=== PATIENT | male | born 1935 ===

== ENCOUNTER 2019-03-27 20:23 | Inpatient (IN) | payer MEDICARE, OTHER ==
[~2019-03-27] VITALS: Ht 182.9 cm; Wt 104.3 kg
--- NOTE | 2019-03-27 20:23 | NUR ---
PATIENT ARRIVED TO UNIT BY WHEELCHAIR. FAMILY MEMBERS BROUGHT PATIENT FROM ANOTHER FACILITY IN PERSONAL VEHICLE. PATIENT ASSISTED TO ROOM AND ORIENTATED TO STAFF AND SURROUNDINGS. CALL LIGHT IN REACH.
[2019-03-27] MEDS ORDERED: ACETAMINOPHEN500 M1 PO (20:47)
[2019-03-27 22:34] VITALS: BP 101/68; BMI 31.2
--- NOTE | 2019-03-28 01:31 | NUR ---
PATIENT RESTING QUIETLY IN SUPINE POSITION. HOB AT 30 DEGREES. RESPIRATIONS EVEN. NO S/S OF DISTRESS. SR UP X 2. BED IN LOWEST POSITION. ALARM ON AND WORKING PROPERLY. CALL LIGHT IN REACH.
[2019-03-28 07:02] LABS: BASOPHILS 0.2 % (0-2); EOSINOPHILS 5.5 % (0-7); HEMATOCRIT 33.9 % (42.0-54.0); HEMOGLOBIN 11.6 g/dL (13.5-17.5); IMMATURE GRANULOCYTES 0.5 % (0-5); LYMPHOCYTES 21.2 % (15-50); MCH 30.9 pg (26.0-34.0); MCHC 34.2 g/dL (31.0-37.0); MCV 90.4 fL (80.0-100.0); MEAN PLATELET VOLUME 8.9 fL (7.4-10.4); MONOCYTES 9.5 % (2-11); NEUTROPHILS 63.1 % (40-80); PLATELET COUNT 166 10x3/uL (130-400); RBC 3.75 10x6/uL (4.20-6.10); WBC 10.1 10x3/uL (4.8-10.8)
[2019-03-28 07:33] LABS: CALC OSMOLALITY 270 mosm/kg (275-300); CALCIUM 8.7 mg/dL (8.5-10.1); CARBON DIOXIDE 27.7 mmol/L (21.0-32.0); CHLORIDE - SERUM 99 mmol/L (98-107); GLUCOSE 96 mg/dL (74-106); POTASSIUM - SERUM 4.1 mmol/L (3.5-5.1); SODIUM 132 mmol/L (136-145); UREA NITROGEN 30 mg/dL (7-18); eGFR NON AFRICAN AMERICAN 75 mL/min (90-120)
--- NOTE | 2019-03-28 08:00 | NUR ---
PATIENT IS ALERT/ORIENT. CALL LIGHT WITHIN REACH. VOICES NO NEEDS AT THIS TIME. WILL CONTINUE WITH PLAN OF CARE
[2019-03-28 08:46] VITALS: BP 124/67
[2019-03-28 09:34] VITALS: Ht 182.9 cm; Wt 104.3 kg
--- NOTE | 2019-03-28 10:00 | NUR ---
PATIENT IN REHAB ROOM. WORKING WITH PHYSICAL THERAPIST. DENIES ANY PAIN/DISC AT THIS TIME.
--- NOTE | 2019-03-28 12:00 | NUR ---
SITTING UP IN BED.CL IN REACH.
--- NOTE | 2019-03-28 12:59 | NUR ---
PATIENT SITTING UP IN WHEELCHAIR TO EAT LUNCH. REFUSED LUNCH. STATED HE WAS NOT HUNGRY
--- NOTE | 2019-03-28 16:45 | NUR ---
SPEECH THERAPIST IN PATIENTS ROOM. EVALUATING PATIENT
--- NOTE | 2019-03-28 20:09 | NUR ---
PT IN BED WATCHING TV, C/O WETTING BRIEF, PT WAS CLEANED AND CHANGED, NO OTHER NEEDS NOTED, BED IN LOWEST POSITION, FLUIDS AND CALL LIGHT WITHIN REACH
[2019-03-29 08:12] VITALS: BP 118/68
--- NOTE | 2019-03-29 08:14 | NUR ---
PT RESTING IN BED WITH EYES OPEN DCALL LIGHT IN REACH NO PROBLEMS WILL MONITER
--- NOTE | 2019-03-29 08:15 | NUR ---
PT UP IN WHEELCHAIR IN ROOM EATING BREAKFAST CALL LIGHT IN REACH WILL MONITER
--- NOTE | 2019-03-29 16:38 | NUR ---
PT RESTING IN BED WITH EYES OPEN CALL LIGHT IN REACH WILL MONITER
--- NOTE | 2019-03-29 23:36 | NUR ---
PT IN BED LOWEST POSITION, EYES CLOSED AROUSES EASILY TO VOICE, RESPIRATIONS EVEN AND UNLABORED, NO NEEDS NOTED, FLUIDS AND CALL LIGHT WITHIN REACH, PT HAS HAD INCONTINENT EPISODE X'S 2, SO FAR THIS SHIFT
--- NOTE | 2019-03-30 03:11 | NUR ---
PT IN BED LOWEST POSITION, EYES CLOSED AROUSES EASILY TO VOICE, RESPIRATIONS EVEN AND UNLABORED, NO NEEDS NOTED, FLUIDS AND CALL LIGHT WITHIN REACH.
[2019-03-30 06:38] LABS: BASOPHILS 0.4 % (0-2); EOSINOPHILS 5.1 % (0-7); HEMATOCRIT 33.9 % (42.0-54.0); HEMOGLOBIN 11.7 g/dL (13.5-17.5); IMMATURE GRANULOCYTES 0.6 % (0-5); LYMPHOCYTES 24.8 % (15-50); MCHC 34.5 g/dL (31.0-37.0); MCV 89.9 fL (80.0-100.0); MEAN PLATELET VOLUME 8.9 fL (7.4-10.4); MONOCYTES 9.3 % (2-11); NEUTROPHILS 59.8 % (40-80); PLATELET COUNT 163 10x3/uL (130-400); RBC 3.77 10x6/uL (4.20-6.10); WBC 8.4 10x3/uL (4.8-10.8)
[2019-03-30 06:48] VITALS: BP 113/58
[2019-03-30 06:52] LABS: CALC OSMOLALITY 280 mosm/kg (275-300); CALCIUM 8.9 mg/dL (8.5-10.1); CARBON DIOXIDE 27.4 mmol/L (21.0-32.0); CHLORIDE - SERUM 103 mmol/L (98-107); CREATININE - SERUM 0.9 mg/dL (0.6-1.3); GLUCOSE 89 mg/dL (74-106); POTASSIUM - SERUM 3.5 mmol/L (3.5-5.1); SODIUM 137 mmol/L (136-145); UREA NITROGEN 34 mg/dL (7-18); eGFR NON AFRICAN AMERICAN 85 mL/min (90-120)
--- NOTE | 2019-03-30 08:15 | NUR ---
PT UP IN WHEELCHAIR FOR BREAKFAST TOLERATING WELL WILL MONITER
--- NOTE | 2019-03-30 13:49 | NUR ---
PATIENT ADMITTED TO REHAB FROM HOME. HIS PCP IS DR. MCKOY. DISCHARGE PLANS ARE FOR HIM TO RETURN HOME AT [facility]. WILL CONTINUE TO FOLLOW WITH PATIENT.
--- NOTE | 2019-03-30 18:20 | NUR ---
PT RESTING IN BED WATCHING TV CALL LIGHT IN REACH WILL MONITER
--- NOTE | 2019-03-30 21:20 | NUR ---
THE PATIENT WAS LYING IN BED AND WATCHING TELEVISION WHEN STAFF ENTERED HIS ROOM. BED IS IN THE LO WPOSITION WITH SIDERAILS X2 AND CALL LIGHT WITHIN REACH. THE PATIENT DEMONSTRATES APPROPRIATE USE OF A CALL LIGHT. THE PATIENT APPEARS COMFORTABLE WITH NO QUESTIONS OR COCNERNS AT THIS TIME.
[2019-03-30 23:08] VITALS: BP 118/58
[2019-03-31 08:00] VITALS: BP 127/94
--- NOTE | 2019-03-31 08:48 | NUR ---
PATIENT ALERT/ORIENT. SITTING UP IN BED TO EAT BREAKFAST. CALL LIGHT WITHIN REACH. VOICES NO NEEDS. WILL CONTINUE WITH PLAN OF CARE
--- NOTE | 2019-03-31 11:43 | NUR ---
I have reviewed this patient and I concur with the Shift Assessment completed by the Licensed Practical Nurse today this shift.
--- NOTE | 2019-03-31 16:01 | NUR ---
PATIENT INCONT OF BLADDER. BRIEF CHANGED AND OSVALDO CARE GIVEN.
[2019-03-31 21:23] VITALS: BP 122/63
--- NOTE | 2019-03-31 22:10 | NUR ---
THE PATIENT WAS LYING IN BED AND WATCHING TELEVISION WHEN STAFF ENETRED HIS ROOM. BED IS IN THE LOW POSITION WITH SIDERAILS X2 AND CALL LIGHT WITHIN REACH. THE PATIENT WAS EDUCATED ON THE NEED TO CALL FOR ASSISTANCE AND DEMONSTRATES UNDERSTANDING VIA TEACHBACK METHOD. THE PATIENT APPEARS COMFORTABLE WITH NO QUESTIONS OR COCNERNS AT T HIS TIME.
--- NOTE | 2019-04-01 03:23 | NUR ---
THE PATIENT APPEARS TO BE SLEEPING WITH SIDERAILS UP AND CALL LIGHT WITHIN REACH.
[2019-04-01 08:09] VITALS: BP 124/65
--- NOTE | 2019-04-01 08:30 | NUR ---
I have reviewed this patient and I concur with the Shift Assessment completed by the Licensed Practical Nurse today this shift.
--- NOTE | 2019-04-01 09:25 | NUR ---
PATIENT ALERT/ORIENT. SITTING UP IN BED EATTING BREAKFAST. CALL LIGHT WITHIN REACH. VOICES NO NEEDS AT THIS TIME. WILL CONTINUE WITH PLAN OF CARE
--- NOTE | 2019-04-01 10:44 | NUR ---
PATIENT HELP WITH SHOWER BY THIS NURSE. PATIENT ABLE TO WASH AND DRY UPPER BODY. UNABLE TO WASH LOWER EXTREMITE. UNABLE TO WASH OR DRESS LOWER EXTREMITES.
[2019-04-01 19:20] VITALS: BP 120/64
--- NOTE | 2019-04-01 19:40 | NUR ---
THE PATIENT WAS LYING IN BED AND WATCHING TELEVISION WHEN STAFF ENTERED HER ROOM. BED IS IN THE LOW POSITION WITH SIDERAILS X2 AND CALL LIGHT WITHIN REACH. THE PATIENT WAS EDUCATED ON THE NEED TO CALL FOR ASSISTANCE WHEN GETTING OUT OF BED. THE PATIENT DEMONSTRATES UNDERSTNADING VIA TEACHBACK METHOD. THE PATIENT APPEARS COMFORTABLE WITH NO QUESTIONS OR COCNERNS AT THIS TIME.
[2019-04-02 06:58] LABS: BASOPHILS 0.3 % (0-2); HEMATOCRIT 34.5 % (42.0-54.0); HEMOGLOBIN 11.7 g/dL (13.5-17.5); IMMATURE GRANULOCYTES 0.4 % (0-5); LYMPHOCYTES 26.6 % (15-50); MCH 30.5 pg (26.0-34.0); MCHC 33.9 g/dL (31.0-37.0); MCV 90.1 fL (80.0-100.0); MEAN PLATELET VOLUME 8.6 fL (7.4-10.4); MONOCYTES 7.8 % (2-11); NEUTROPHILS 60.9 % (40-80); PLATELET COUNT 145 10x3/uL (130-400); RBC 3.83 10x6/uL (4.20-6.10); RDW 14.1 % (11.5-14.5); WBC 7.3 10x3/uL (4.8-10.8)
[2019-04-02 07:03] LABS: CALC OSMOLALITY 273 mosm/kg (275-300); CALCIUM 8.8 mg/dL (8.5-10.1); CARBON DIOXIDE 29.7 mmol/L (21.0-32.0); CHLORIDE - SERUM 101 mmol/L (98-107); GLUCOSE 98 mg/dL (74-106); POTASSIUM - SERUM 3.6 mmol/L (3.5-5.1); SODIUM 136 mmol/L (136-145); UREA NITROGEN 17 mg/dL (7-18); eGFR NON AFRICAN AMERICAN 75 mL/min (90-120)
--- NOTE | 2019-04-02 07:56 | NUR ---
PATIENT ALERT/ORIENT. EATTING BREAKFAST IN REHAB ROOM. WILL CONTINUE WITH PLAN OF CARE
[2019-04-02 08:00] VITALS: BP 139/75
--- NOTE | 2019-04-02 09:47 | RHP ---
PATIENT: RAUL ZAMBRANO JR MEDICAL RECORD: [id number] ACCOUNT: [id number] LOCATION:[facility]1112 : 31 ADMISSION DATE: 03/27/19 REHABILITATION HISTORY AND PHYSICAL EXAMINATION POST ADMISSION PHYSICIAN EXAMINATION ADMITTING DIAGNOSIS: Orthopedic secondary to closed fracture of multiple ribs of the left side. HISTORY OF PRESENT ILLNESS: The patient is an 83-year-old gentleman admitted to the hospital 4 days after having a fall while getting out of the shower in assisted living. He was unable to tolerate the pain any longer due to chest pain and discomfort. He was found to have multiple rib fractures and pleurisy. He has been receiving physical therapy during his acute hospital stay. He has been requiring some supplemental O2 having pleuritic pain secondary to multiple rib fractures. He has got pain problem. He is on anticoagulant therapy. He has been requiring respiratory treatments. He has had impaired mobility, gait disturbance, deconditioning, and proximal muscle weakness. He is a high risk for falls, debility, and self-care deficits. These are all barriers to his discharge home. He lives alone in an apartment at [facility], was moderately independent with mobility and independent with his ADLs. He is currently set up for mod assist with ADLs and mod assist to total assist for mobility. He and his family would like to return home as his prior level of functioning or better if possible. COMORBIDITIES: In this patient include closed rib fractures, chest pain with pleuritic component, acute fall, osteoarthritis of the knees, gait instability, prostate cancer, hypertension, hyperlipidemia, hearing loss, dementia, debility, impaired mobility, nausea and vomiting. PAST MEDICAL HISTORY: Significant for degenerative joint disease, dementia, prostate cancer, hypertension, hyperlipidemia, otitis, unspecific problems with the prostate. PAST SURGICAL HISTORY: Includes appendectomy, cholecystectomy, and hernia repair. ALLERGIES: No known drug allergies. CURRENT MEDICATIONS: Include hydrochlorothiazide 12.5 mg daily, Cozaar 100 mg daily. He is on Pravachol 20 mg daily, Aricept 10 mg q.h.s., and acetaminophen 500 mg every 4 hours p.r.n. HABITS: He does have a history of tobacco use, just doing a pipe. FAMILY HISTORY: Noncontributory. SOCIAL HISTORY: The patient hopes to be able to return home and get back to his prior level of functioning. REVIEW OF SYSTEMS: GENERAL: Does complain of some weakness and fatigue. HEENT: Denies cold, cough, or congestion. CARDIOVASCULAR: Denies chest pain. HISTORY AND PHYSICAL [id number] RAUL ZAMBRANO JR PHYSICAL EXAMINATION: VITAL SIGNS: Show temperature 98.2, pulse 96, respirations were 17. His BP is 101/68, sat is 90%. GENERAL: A somewhat obese gentleman in no acute distress, alert upon exam. HEENT: Normocephalic and atraumatic. Mucosa moist. NECK: Supple. No lymphadenopathy. LUNGS: Clear at this time. In upper levine, he does have some limitation secondary to rib fractures. CARDIOVASCULAR: Regular rate and rhythm. No murmurs, rubs or gallops. ABDOMEN: Soft, benign and nontender. Positive bowel sounds times 4. EXTREMITIES: No clubbing, cyanosis or edema. NEUROLOGIC: He does have some noted proximal muscle weakness. LABORATORY DATA: White count is 10.1, H&H of 12 and 34, and platelet count is noted to be 166. His sodium is 132, potassium 4.1, BUN and creatinine of 30 and 1.0 and blood sugar is noted to be 96. ASSESSMENT: This is an 83-year-old gentleman admitted to the rehab with a working diagnosis of multiple rib fractures with debility caused by this. The patient has potential to make improvement. We instituted the following multidisciplinary therapies including but not limited to physical, occupational, respiratory, speech, nutritional services, prosthetics and orthotics. Given his complex medical condition and risk for more complications, rehabilitation services cannot be provided at a low level of care such as senior care facility. PLAN: 1. Admit to [facility] rehab for an intensive inpatient therapy to include the following disciplines: A. Physical therapy to improve gait, all transfer skills and bed mobility to a modified independent level. B. Occupational therapy to improve activities of daily living to a modified independent level. C. Case management to assist with discharge planning and placement options. D. Nutrition to assist with nutritional needs. E. Rehabilitation nursing to assist in monitoring the patient's underlying medical conditions and to assist with any type of bowel and bladder management. 2. The patient's current medication and medical care will be continued. 3. The patient will be placed on standard fall precautions. 4. We will watch for any signs of pneumonia. Repeat chest x-rays as needed. 5. I am going to follow up in the a.m. TRANSINT:[id number] Voice Confirmation ID: [id number] DOCUMENT ID: [id number] BESSY notes whether there has been none or any medical/functional change since admission: - No change since pre-admission screen. BESSY attests patient continues to be appropriate for IRF: - Continues to be appropriate. HISTORY AND PHYSICAL [id number] RAUL ZAMBRANO JR, JOHN SCOTT MD at 0947 CC: [id number] DICTATION DATE: 03/28/19822 FOOD PREPARATION WORKER: 03/28/19 1204 ADM IN [place] [id number] [place] [id number]
--- NOTE | 2019-04-02 11:13 | NUR ---
PATIENT IN REHAB ROOM. WORKING WITH PHYSICAL THERAPIST
--- NOTE | 2019-04-02 14:03 | NUR ---
PATIENT IS INCONT OF BLADDER AND BOWEL. TOTAL ASST WITH OSVALDO CARE.
--- NOTE | 2019-04-02 15:22 | NUR ---
PATIENT HELPED INTO BED. MODERATE ASST FROM WHEELCHAIR TO BED.
--- NOTE | 2019-04-02 19:15 | NUR ---
ASSESSMENT PER FLOW SHEET, PT REPORTS FLATUS, STATES "I THINK I HAVE A WET DIAPER", PT CLEANED UP AND CHANGED, PT DENIES FURTHER NEEDS OR PAIN AT THIS TIME, BED IN LOW POSITION, SIDE RAILS X 2, CALL LIGHT IN REACH
--- NOTE | 2019-04-02 20:20 | NUR ---
PT AWAKE, WATCHING TV, SERVED FRESH H20, ASSISTED PT WITH MENU
[2019-04-02 20:38] VITALS: BP 140/63
--- NOTE | 2019-04-02 21:17 | NUR ---
PT AWAKE, WATCHING TV, ADM 2100 MED PER MD ORDERS, SEE EMAR, PT DENIES NEEDS OR PAIN AT THIS TIME, BED IN LOW POSITION, SIDE RAILS X 2, CALL LIGHT IN REACH
--- NOTE | 2019-04-02 22:15 | NUR ---
REPORT TO MOHAMUD Perez LPN
--- NOTE | 2019-04-02 23:11 | NUR ---
REST QUIETLY IN BED. EYE CLOSE.
--- NOTE | 2019-04-03 03:54 | NUR ---
REST IN BED. BED LOW, SIDE RAIL UP X3.
--- NOTE | 2019-04-03 04:46 | NUR ---
PT IN BED LOWEST POSITION, EYES CLOSED AROUSES EASILY TO VOICE, RESPIRATIONS EVEN AND UNLABORED, NO NEEDS NOTED, FLUIDS AND CALL LIGHT WITHIN REACH I have reviewed this patient and I concur with the Shift Assessment completed by the Licensed Practical Nurse today this shift.
--- NOTE | 2019-04-03 07:26 | NUR ---
RECEIVED REPORT. LYING IN BED SUPINE WATCHING TV. ALERT AND ORIENTED X4. DENIES ANY NEEDS OR PAIN. NO SIGNS OF DISTRESS NOTED. CALL LIGHT WITHIN REACH, FALL PRECAUTIONS IN PLACE. WILL CONTINUE TO MONITOR
[2019-04-03 08:00] VITALS: BP 132/64
--- NOTE | 2019-04-03 11:33 | NUR ---
SITTING UP IN BED WATCHING TV. DENIES ANY NEEDS OR PAIN. NO SIGNS OF DISTRESS NOTED. CALL LIGHT WITHIN REACH, FALL PRECAUTIONS IN PLACE. WILL CONTINUE TO MONITOR
--- NOTE | 2019-04-03 12:27 | NUR ---
NUTRITION F/U PT TOLERATING AHA DIET WITH 75% INTAKE RECENT MEALS. CONTINUES TO BE ASSESSED AT LOW NUTRITIONAL RISK. RD FOLLOWING
--- NOTE | 2019-04-03 14:06 | NUR ---
IN THERAPY GYM PARTICIPATING IN PT. NO SIGNS OF DISTRESS NOTED
[2019-04-03 19:46] VITALS: BP 116/57
--- NOTE | 2019-04-03 20:00 | NUR ---
PATIENT RECEIVED SITTING UP IN BED WATCHING TV. PATIENT CALL LIGHT NEXT TO EAR. PATIENT VITAL SIGNS & ASSESSMENT DONE. PATIENT HAD NO C/O PAIN OR DISTRESS. PATIENT URINAL HAD 100 CC 0F URINE. PATIENT BEDSIDE TABLE & CALL LIGHT WITHIN REACH. WILL [id number] TO MONITOR.
--- NOTE | 2019-04-03 21:27 | NUR ---
PATIENT BED WET. PATIENT CLEANED & NEW BEDDING APPLIED. URINAL AT BEDSIDE. CALL LIGHT WITHIN REACH. ALARM ON. WILL CONTINUE TO MONITOR.
--- NOTE | 2019-04-04 01:12 | NUR ---
PT IN BED LOWEST POSITION, EYES CLOSED AROUSES EASILY TO VOICE, RESPIRATIONS EVEN AND UNLABORED, NO NEEDS NOTED, FLUIDS AND CALL LIGHT WITHIN REACH
[2019-04-04 06:35] LABS: BASOPHILS 0.3 % (0-2); EOSINOPHILS 3.7 % (0-7); HEMATOCRIT 34.1 % (42.0-54.0); HEMOGLOBIN 11.8 g/dL (13.5-17.5); IMMATURE GRANULOCYTES 0.4 % (0-5); LYMPHOCYTES 35.1 % (15-50); MCH 31.1 pg (26.0-34.0); MCHC 34.6 g/dL (31.0-37.0); MCV 89.7 fL (80.0-100.0); MEAN PLATELET VOLUME 8.9 fL (7.4-10.4); MONOCYTES 8.6 % (2-11); NEUTROPHILS 51.9 % (40-80); PLATELET COUNT 145 10x3/uL (130-400); RDW 14.3 % (11.5-14.5)
[2019-04-04 06:48] LABS: ANION GAP 11.1 mmol/L (8-16); CALCIUM 8.6 mg/dL (8.5-10.1); CARBON DIOXIDE 27.7 mmol/L (21.0-32.0); CREATININE - SERUM 1.1 mg/dL (0.6-1.3); POTASSIUM - SERUM 3.8 mmol/L (3.5-5.1)
[2019-04-04 07:47] VITALS: BP 118/53
--- NOTE | 2019-04-04 08:24 | NUR ---
PT RESTING IN BED WITH EYES OPEN CALL LIGHT IN REACH NO PROBLEMS WILL MONITER
--- NOTE | 2019-04-04 15:19 | NUR ---
CARE TEAM MEETING: TENATIVE DISCHARGE DATE IS 04/09/19, WILL CONTINUE TO FOLLOW WITH PATIENT AND WILL ASSIST WITH DISCHARGE NEEDS. DISCHARGE PLANS ARE FOR PATIENT O RETURN TO HIS HOME.
--- NOTE | 2019-04-04 17:00 | NUR ---
I have reviewed this patient and I concur with the Shift Assessment completed by the Licensed Practical Nurse today this shift.
--- NOTE | 2019-04-04 17:06 | NUR ---
PT RESTING IN BED WITH EYES OPEN CALL LIGHT IN REACH WILL MONITER
[2019-04-04 19:40] VITALS: BP 123/62
--- NOTE | 2019-04-04 19:59 | NUR ---
PATIENT RECEIVED SITTING UP IN BED WATCHING TV. ASSESSMENT & VITAL SIGNS DONE. NO C/O PAIN OR DISTRESS. BED LOW. ALARM ON. CALL LIGHT WITHIN REACH. WILL CONTINUE TO MONITOR.
--- NOTE | 2019-04-05 03:30 | NUR ---
I have reviewed this patient and I concur with the Shift Assessment completed by the Licensed Practical Nurse today this shift.
--- NOTE | 2019-04-05 03:35 | NUR ---
PATIENT EYES CLOSED. RESPIRATIONS 18 & EVEN. BED LOW. ALARM ON. CALL LIGHT WITHIN REACH. WILL CONTINUE TO MONITOR.
[2019-04-05] MEDS ORDERED: PATIENT'S OWN MEDICA PO (07:10)
[2019-04-05] MEDS ORDERED: PRAVACHOL20 MG PO (07:10)
[2019-04-05] MEDS ORDERED: Aricept PO (07:10)
[2019-04-05] MEDS ORDERED: COZAAR50 MG PO (07:10)
[2019-04-05] MEDS ORDERED: HCTZ25 MG PO (07:10)
[2019-04-05 08:13] VITALS: BP 100/64
--- NOTE | 2019-04-05 08:41 | NUR ---
PT AM MEDS ADMINISTERED. PT PARTICIPATING IN THERAPY AT THIS TIME. WCSHARRI.
--- NOTE | 2019-04-05 17:16 | NUR ---
PT EATING DINNER, DENIES NEEDS. WCTM.
[2019-04-05 19:00] VITALS: BP 103/70
--- NOTE | 2019-04-05 20:00 | NUR ---
PATIENT RECEIVED SITTING UP IN BED WATCHING TV. PATIENT ASSESSMENT & VITAL SIGNS DONE. PATIENT HAD NO C/O PAIN OR DISTRESS. BED LOW. ALARM ON. CALL LIGHT & URINAL WITHIN REACH. WILL CONTINUE TO MONITOR.
--- NOTE | 2019-04-06 02:15 | NUR ---
PATIENT EYES CLOSED. RESPIRATIONS 18 & EVEN. BED LOW. ALARM ON. CALL LIGHT WITHIN REACH. WILL CONTINUE TO MONITOR.
--- NOTE | 2019-04-06 07:31 | NUR ---
PT RESTING IN BED WITH EYES OPEN CALL LIGHT IN REACH NO PROBLEMS WILL MONITER
[2019-04-06 07:34] LABS: BASOPHILS 0.4 % (0-2); EOSINOPHILS 3.2 % (0-7); HEMATOCRIT 33.8 % (42.0-54.0); HEMOGLOBIN 11.3 g/dL (13.5-17.5); IMMATURE GRANULOCYTES 0.3 % (0-5); LYMPHOCYTES 32.9 % (15-50); MCH 30.2 pg (26.0-34.0); MCHC 33.4 g/dL (31.0-37.0); MCV 90.4 fL (80.0-100.0); MEAN PLATELET VOLUME 8.9 fL (7.4-10.4); MONOCYTES 6.6 % (2-11); NEUTROPHILS 56.6 % (40-80); PLATELET COUNT 129 10x3/uL (130-400); RBC 3.74 10x6/uL (4.20-6.10); RDW 14.4 % (11.5-14.5); WBC 7.1 10x3/uL (4.8-10.8)
--- NOTE | 2019-04-06 07:45 | NUR ---
RECEIVED REPORT. SITTING UP IN BED WATCHING MORNING NEWS. DENIES ANY NEEDS OR PAIN. NO SIGNS OF DISTRESS. ALERT AND ORIENTED X3. ASSISTED IN REPLACING LEFT HEARING AID BATTERY. CALL LIGHT WITHIN REACH, FALL PRECAUTIONS IN PLACE. WILL CONTINUE TO MONITOR
[2019-04-06 08:08] LABS: CALC OSMOLALITY 279 mosm/kg (275-300); CALCIUM 8.8 mg/dL (8.5-10.1); CHLORIDE - SERUM 106 mmol/L (98-107); CREATININE - SERUM 0.9 mg/dL (0.6-1.3); GLUCOSE 86 mg/dL (74-106); POTASSIUM - SERUM 3.8 mmol/L (3.5-5.1); SODIUM 139 mmol/L (136-145); UREA NITROGEN 22 mg/dL (7-18); eGFR NON AFRICAN AMERICAN 85 mL/min (90-120)
[2019-04-06 09:00] VITALS: BP 128/75
--- NOTE | 2019-04-06 12:04 | NUR ---
PATIENT DISCHARGING BACK TO HIS APARTMENT AT [facility] WILL PROVIDE THERAPY AT HOME. NO NEW DME NEEDED AT THIS TIME.DR. MCKOY 04/16/19 @ 11:40, CASSIA BAZAN 05/14/19 @ 9:00. PATIENT CHOICE FORM AND IMFM FORMS SIGNED, COPY GIVEN TO PATIENT AND FILED IN CHART. DISCHARGE INSTRUCTIONS FAXED TO PCP, HOME HEALTH AND REVIEWED WITH PATIENT AND SPOUSE.
--- NOTE | 2019-04-06 13:05 | NUR ---
REVIEWED D/C INSTRUCTIONS AND MEDICATIONS WITH PT. NO CONCERNS VOICED. PT BEING DISCHARGED IN STABLE CONDITION TO HIS HOME AT [facility]. WILL BE TRANSPORTED HOME BY [facility].
== END 2019-04-06 15:16 | disposition home health service (06) | DRG 561 ==
LOC: D.REHAB 20:23
PROVIDERS: ADMIT Emergency Medicine; ATTEND Emergency Medicine
DX: S22.42XD Multiple fractures of ribs, left side, subsequent encounter for fracture with routine healing (principal); R53.81 Other malaise; R26.9 Unspecified abnormalities of gait and mobility; F03.90 Unspecified dementia, unspecified severity, without behavioral disturbance, psychotic disturbance, mood disturbance, and anxiety; E78.5 Hyperlipidemia, unspecified; I10 Essential (primary) hypertension; R11.2 Nausea with vomiting, unspecified; C61 Malignant neoplasm of prostate; M17.10 Unilateral primary osteoarthritis, unspecified knee; W19.XXXD Unspecified fall, subsequent encounter; H91.90 Unspecified hearing loss, unspecified ear; R07.9 Chest pain, unspecified